=== PATIENT | female | born 1970 | race Caucasian/White ===

== ENCOUNTER 2017-12-24 22:50 | Emergency (ER) | payer OTHER ==
[~2017-12-24] VITALS: Ht 162.6 cm; Wt 59.0 kg
[2017-12-24 22:53] VITALS: Ht 162.6 cm; Wt 59.0 kg
[2017-12-25 01:12] VITALS: BP 122/90
== END 2017-12-25 01:12 | disposition home or self-care (01) ==
LOC: ED 22:50
DX: F45.8 Other somatoform disorders (principal)

== ENCOUNTER 2018-08-10 12:26 | Emergency (ER) | payer OTHER ==
[~2018-08-10] VITALS: Ht 165.1 cm; Wt 64.0 kg
[2018-08-10 12:33] VITALS: Ht 165.1 cm; Wt 64.0 kg
[2018-08-10 14:44] VITALS: BP 132/91
== END 2018-08-10 14:44 | disposition home or self-care (01) ==
LOC: ED 12:26
DX: M54.5 Low back pain (principal); M79.7 Fibromyalgia; M19.90 Unspecified osteoarthritis, unspecified site; Z90.710 Acquired absence of both cervix and uterus
CPT/HCPCS: J1885